=== PATIENT | male | born 1985 ===

== ENCOUNTER 2017-03-19 00:21 | Emergency (ER) | payer OTHER ==
[2017-03-19 00:37] VITALS: BP 128/75; PULSE 74; TEMP 98
[2017-03-19] MEDS ORDERED: Albuterol-Ipratrop 3 mg / 0.5 (3 ml) UD INH STA (01:15)
[2017-03-19] MEDS ORDERED: Albuterol-Ipratrop 3 mg / 0.5 (3 ml) UD ONE (01:15)
[2017-03-19 01:34] VITALS: RESP 15
[2017-03-19 02:07] VITALS: O2SAT 100
--- NOTE | 2017-03-19 02:07 | ED PDOC ---
HPI: SOB/CHF/COPD Time Seen by Provider: 03/19/17 00:54 Chief Complaint (Nursing): Shortness Of Breath Chief Complaint (Provider): 00:54 History Per: Patient History/Exam Limitations: no limitations Onset/Duration Of Symptoms: Days (x14) Additional Complaint(s): 00:54 Rubén Peralta, 31 year old male presents to the ED on for intermittent shortness of breath and dry cough occurring for 2 weeks prior to arrival. 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 He denies any associated fever, constipation, vomiting, or diarrhea. Past Medical History Reviewed: Historical Data, Nursing Documentation, Vital Signs Vital Signs: Last Vital Signs Temp 98 F 03/19/17 00:35 Pulse 74 03/19/17 00:35 Resp 15 03/19/17 01:34 BP 128/75 03/19/17 00:35 Pulse Ox 100 03/19/17 03:44 - Medical History PMH: No Chronic Diseases - Surgical History Surgical History: No Surg Hx - Family History Family History: States: Unknown Family Hx - Home Medications Home Medications: Ambulatory Orders Medication Instructions Recorded Albuterol HFA [Ventolin HFA 90 1 - 2 puff IH Q6 PRN #1 inhaler 03/19/17 mcg/actuation (8 g)] Methylprednisolone [Medrol Dosepak] 4 mg PO ASDIR #1 pkg 03/19/17 Polyethylene Glycol 3350 [Miralax] 17 g PO QAM PRN #7 pkg 03/19/17 - Allergies Allergies/Adverse Reactions: Allergies Allergy/AdvReac Type Severity Reaction Status Date / Time No Known Allergies Allergy Verified 03/19/17 00:34 Review of Systems Constitutional: Negative for: Fever Cardiovascular: Positive for: Chest Pain (chest tightness) Respiratory: Positive for: Cough (dry cough), Shortness of Breath Gastrointestinal: Negative for: Vomiting, Diarrhea, Constipation Physical Exam - Reviewed Nursing Documentation Reviewed: Yes Vital Signs Reviewed: Yes - Physical Exam Appears: Positive for: Non-toxic, No Acute Distress Head Exam: Positive for: ATRAUMATIC, NORMOCEPHALIC Skin: Positive for: Normal Color, Warm, Dry Eye Exam: Positive for: Normal appearance ENT: Positive for: Normal ENT Inspection Neck: Positive for: Normal, Painless ROM Cardiovascular/Chest: Positive for: Regular Rate, Rhythm, Chest Non Tender Respiratory: Positive for: Other (decreased air entry at lung bases ) Gastrointestinal/Abdominal: Positive for: Normal Exam, Soft. Negative for: Tenderness Back: Positive for: Normal Inspection Extremity: Positive for: Normal ROM. Negative for: Deformity Neurologic/Psych: Positive for: Alert, Oriented (x3) - ECG O2 Sat by Pulse Oximetry: 100 (RA) Pulse Ox Interpretation: Normal Medical Decision Making Medical Decision Makin:54 Initial Impression: 31 year old male with dyspnea and cough. Initial Plan: * Electrocardiogram Stat * EDNURTX Stat * Chest Two Views (PA/LAT) [RAD] Stat * Duoneb 3mg/0.5 mg (3ml) UD 3 ml INH Stat * Peak Flow Pre/Post Tx * Reevaluation Patient's chest x-ray shows no acute disease. He reported improvement after administration of Duoneb. Diagnosis: Bronchitis Condition: Improved Discussed with patient to followup with [facility]. Prescribed Prednisolone and Miralax. Patient agreed to treatment plan and medications. Scribe Attestation: Documented by Kylee Corral, acting as a scribe for Rene Jurado MD. Provider Scribe Attestation: All medical record entries made by the Scribe were at my direction and personally dictated by me. I have reviewed the chart and agree that the record accurately reflects my personal performance of the history, physical exam, medical decision making, and the department course for this patient. I have also personally directed, reviewed, and agree with the discharge instructions and disposition. Disposition - Clinical Impression Clinical Impression: Bronchitis - Disposition Referrals: [facility] [Outside] Disposition: Routine/Home Disposition Time: 02:00 Condition: STABLE Prescriptions: Albuterol HFA [Ventolin HFA 90 mcg/actuation (8 g)] 1 - 2 puff IH Q6 PRN #1 inhaler PRN Reason: Shortness Of Breath Methylprednisolone [Medrol Dosepak] 4 mg PO ASDIR #1 pkg Polyethylene Glycol 3350 [Miralax] 17 g PO QAM PRN #7 pkg PRN Reason: Constipation Instructions: Acute Bronchitis (ED) Print Language: CROATIAN
--- NOTE | 2017-03-19 09:13 | RAD ---
HISTORY: SOB COMPARISON: None available TECHNIQUE: Chest PA and lateral FINDINGS: Examination limited by habitus. LUNGS: No focal consolidation. Please note that chest x-ray has limited sensitivity for the detection of pulmonary masses. PLEURA: No significant pleural effusion identified. No definite pneumothorax . CARDIOVASCULAR: Heart size appears within normal limits. OSSEOUS STRUCTURES: Degenerative changes of the spine. VISUALIZED UPPER ABDOMEN: Unremarkable. OTHER FINDINGS: None. IMPRESSION: No focal consolidation, significant pleural effusion, or definite pneumothorax identified.
--- NOTE | 2017-03-19 13:06 | CARD ---
APPROVED REPORT EKG Measurement Heart [id number] <Conclusion> Normal sinus rhythm Minimal voltage criteria for LVH, may be normal variant Borderline ECG
== END 2017-03-19 02:53 | disposition home or self-care (01) ==
LOC: H.ER 00:21
DX: J20.9 Acute bronchitis, unspecified (principal); R06.00 Dyspnea, unspecified; R06.02 Shortness of breath

== ENCOUNTER 2018-02-10 18:13 | Emergency (ER) | payer OTHER ==
[2018-02-10 18:45] VITALS: BP 160/90; PULSE 90; RESP 16; TEMP 98.1; O2SAT 97
--- NOTE | 2018-02-10 19:05 | ED PDOC ---
HPI: General Adult Time Seen by Provider: 02/10/18 19:04 Chief Complaint (Nursing): Back Pain Chief Complaint (Provider): upper back pain, cough History Per: Patient History/Exam Limitations: no limitations Onset/Duration Of Symptoms: Other (x 2 weeks) Current Symptoms Are (Timing): Still Present Additional History Per: Prior Records Additional Complaint(s): 32-year-old male presents with left upper back pain and cough ongoing for 2 weeks. Patient is a smoker and states he has history of bronchitis. Patient denies any chest pain or SOB. No fever or chills. No recent travel or known sick contacts. PMD: none Past Medical History Reviewed: Historical Data, Nursing Documentation, Vital Signs Vital Signs: Last Vital Signs Temp 98.1 F 02/10/18 18:45 Pulse 90 02/10/18 18:45 Resp 16 02/10/18 18:45 BP 160/90 H 02/10/18 18:45 Pulse Ox 97 02/10/18 19:37 - Medical History PMH: Bronchitis - Surgical History Surgical History: No Surg Hx - Family History Family History: States: No Known Family Hx - Living Arrangements Living Arrangements: With Family - Social History Current smoker - smoking cessation education provided: Yes Alcohol: None Drugs: Denies - Home Medications Home Medications: Ambulatory Orders Medication Instructions Recorded Albuterol HFA [Ventolin HFA 90 1 - 2 puff IH Q6 PRN #1 inhaler 03/19/17 mcg/actuation (8 g)] Methylprednisolone [Medrol Dosepak] 4 mg PO ASDIR #1 pkg 03/19/17 Polyethylene Glycol 3350 [Miralax] 17 g PO QAM PRN #7 pkg 03/19/17 Albuterol 0.083% [Albuterol 0.083% 3 ml IH Q6H PRN #30 neb 08/09/17 Inhal Mariel (2.5 mg/3 ml) UD] Albuterol HFA [Ventolin HFA 90 2 puff IH [id number] PRN #1 bottle 08/09/17 mcg/actuation (8 g)] Nebulizer [Compact Compressor 1 dev XX PRN PRN #1 dev 08/09/17 Nebulizer] Prednisone 50 mg PO DAILY #4 tab 08/09/17 Albuterol HFA [Ventolin HFA 90 1 puff IH ASDIR #1 unit 04/13/18 mcg/actuation (8 g)] Azithromycin [Zithromax] 250 mg PO DAILY #6 tab 02/10/18 Benzonatate 200 mg PO TID PRN #20 capsule 02/10/18 - Allergies Allergies/Adverse Reactions: Allergies Allergy/AdvReac Type Severity Reaction Status Date / Time No Known Allergies Allergy Verified 03/19/17 00:34 Review of Systems ROS Statement: Except As Marked, All Systems Reviewed And Found Negative Constitutional: Negative for: Fever, Chills Respiratory: Positive for: Cough Gastrointestinal: Negative for: Nausea, Vomiting Musculoskeletal: Positive for: Back Pain (upper back pain) Physical Exam - Reviewed Nursing Documentation Reviewed: Yes Vital Signs Reviewed: Yes - Physical Exam Appears: Positive for: Well, Non-toxic Head Exam: Positive for: ATRAUMATIC, NORMAL INSPECTION, NORMOCEPHALIC Skin: Positive for: Normal Color. Negative for: Rash Eye Exam: Positive for: Normal appearance ENT: Positive for: Normal ENT Inspection Neck: Positive for: Normal, Painless ROM Cardiovascular/Chest: Positive for: Regular Rate, Rhythm Respiratory: Positive for: Normal Breath Sounds. Negative for: Wheezing, Respiratory Distress Gastrointestinal/Abdominal: Positive for: Soft. Negative for: Tenderness, Distended, Guarding, Rebound Back: Negative for: L CVA Tenderness, R CVA Tenderness, Vertebral Tenderness Extremity: Positive for: Normal ROM. Negative for: Deformity Neurologic/Psych: Positive for: Alert, Oriented (x 3). Negative for: Motor/ Sensory Deficits - ECG O2 Sat by Pulse Oximetry: 97 (RA) Pulse Ox Interpretation: Normal - Other Rad CXR X-Ray: Interpreted by Me, Viewed By Me X-Ray Interpretation: no acute finding Medical Decision Making Medical Decision Makin32 year old with cough and back pain Plan: - Chest X-Ray Rx zithromax, tessalon perles and ventolin inhaler given. Patient was given smoking cessation instructions and was referred to clinic for follow up. Scribe Attestation: Documented by Donovan Cheng, acting as a scribe for Kenzie Holman PA-C Provider Scribe Attestation: All medical record entries made by the Scribe were at my direction and personally dictated by me. I have reviewed the chart and agree that the record accurately reflects my personal performance of the history, physical exam, medical decision making, and the department course for this patient. I have also personally directed, reviewed, and agree with the discharge instructions and disposition. Disposition - Clinical Impression Clinical Impression: Bronchitis - Patient ED Disposition Is Patient to be Admitted: No Counseled Patient/Family Regarding: Studies Performed, Diagnosis, Need For Followup, Rx Given, Smoking Cessation - Disposition Referrals: [facility] [place] [Outside] Disposition: Routine/Home Disposition Time: 19:47 Condition: STABLE Additional Instructions: TAKE RX MEDS DIRECTED. STOP SMOKING! FOLLOW UP IN 2-3 DAYS WITH CLINIC. Prescriptions: Albuterol HFA [Ventolin HFA 90 mcg/actuation (8 g)] 1 puff IH ASDIR #1 unit Azithromycin [Zithromax] 250 mg PO DAILY #6 tab Benzonatate 200 mg PO TID PRN #20 capsule PRN Reason: Cough Instructions: Acute Bronchitis Forms: [email or web address] (Tuvaluan) Print Language: ANGOLAN
--- NOTE | 2018-02-11 08:16 | RAD ---
HISTORY: cough COMPARISON: 08/09/2017 TECHNIQUE: Chest PA and lateral FINDINGS: LUNGS: No active pulmonary disease. PLEURA: No significant pleural effusion identified. No pneumothorax apparent. CARDIOVASCULAR: Normal. OSSEOUS STRUCTURES: No significant abnormalities. VISUALIZED UPPER ABDOMEN: Normal. OTHER FINDINGS: None. IMPRESSION: No active disease.
== END 2018-02-10 21:00 | disposition home or self-care (01) ==
LOC: H.ER 18:13
DX: J40 Bronchitis, not specified as acute or chronic (principal); F17.200 Nicotine dependence, unspecified, uncomplicated